=== PATIENT | male | born 2005 | race Two or more races ===

== ENCOUNTER 2025-01-04 08:00 | Outpatient (RCR) | payer MEDICAID, SELFPAY ==
--- NOTE | 2025-01-04 09:00 | BH.SGPN.GN ---
Behaviors/Verbalizations/Mental Status: [] Eye contact is good. Motor activity is appropriate. Appearance is casual. Speech is Appropriate. Mood is anxious. Affect is congruent. Thoughts are linear and logical. No evidence of psychosis. Reviewed daily check in sheet and no reports of suicidal ideations Client Response/Progress/Benefit: [] Pt declined to share during group. Attentive. Daily symptom tracker notes 3/5 for depression , 5/5 for anxiety, and 2/5 for irritability. Today was pt's first day in IOP and he choose not to share. No progress noted. Group provided support and encouragement which was beneficial. Will continue in IOP to prevent decompensation, increase healthy coping, and maintain safety. Narrative Note: []
--- NOTE | 2025-01-04 09:45 | BH.COMM ---
Communication Note Communication with Client Communication Note: Met with pt to complete paperwork, update any changes to pre-admission screening, and complete risk assessment. Moderate risk on [facility]. Consulted with Dr. Valdivia regarding current symptoms with orders to admit to IOP with dx of F33.2
--- NOTE | 2025-01-04 10:10 | BH.SGPN.GN ---
Behaviors/Verbalizations/Mental Status: []Pt alert and oriented, neatly dressed and groomed. Eye contact good. Motor activity appropriate. Speech within normal limits. Affect congruent, mood depressed. Thoughts linear, logical, no signs of hallucinations or delusions. Client Response/Progress/Benefit: [] Pt responded well to session AEB contributing to discussion, taking notes, and listening attentively to others. Group discussed the benefits of managed anger and anger as a secondary emotion. Pt participated in discussions on anger triggers and responses. Group reported outward personal signs of anger as lashing out verbally, crying, and being impulsive. Group Identified examples of anger cycles and as well the emotions that contribute to anger. Appeared to benefit from increased knowledge of the underlying emotions that impact anger and increased self-awareness of the internal and external consequences of anger. Pt will continue IOP tx to prevent decompensation, gain healthy coping skills, and improve daily functioning. Narrative Note: []
--- NOTE | 2025-01-05 21:03 | BH.PSA ---
Source of Information Presenting Problems/Circumstances Problems, Referral Source, Mental Status, Client: Pt presented to [facility] IOP program for further evaluation and treatment of worsening depression and poor functioning. Patient was referred by her mother due to passive SI, worsening depression with poor functioning/poor self-care. Pt reports history of depression going back to the age of 12 or 13 but notes he pushed it to the side and had not focused on his mental health at the time. More recently he has struggled with thoughts of not wanting to be alive, worsened depressed mood with difficulty functioning. Notes very poor sleep and erratic appetite, anhedonia, difficulty concentrating. He said he is seeking help now due to symptoms worsening after a series of stressors and his mother's concern. He lost his grandfather a year ago in January which has been very hard on him and the anniversary of his coming up has increased his depression. Psychiatric Presentation Psych Issues & Need for Admission Psychiatric Issues:: MDD (major depressive disorder), recurrent severe, without psychosis F33.2 Generalized Anxiety Disorder Past Psychiatric History MH Treatment Hx Treatment History: Sees a psychiatrist since Dawit year in high school. Stated he goes to [facility] for medication management. Never has been in counseling. First hospitalization:: Denies any inpatient psychiatric hospitalization. ECT Therapy:: No Age of first mental health symptoms: Age 11, developed symptoms of depression and struggled a lot during school due to bullying and his weight, did not start trying medication until his dawit year due to significant decompensation. Development & Family of Origin Childhood Significant Childhood Events: At one point when he was around 2 years old he was homeless and living in the car with his mom in [place] and throughout his younger years went to 7 different schools, ultimately moved up to [place] to be near mom side of the family and lived in [place] until recently. Father was never in pt's life and pt describes feeling abandoned by his father. Family Who currently lives in your home?: Moved to [place] 2 months ago and lives with grandma, mother, and 2 dogs. They lived in [place] for 7 years before then but just recently moved to have more space . Describe family composition:: -Parents: Very close with his mother and currently lives with her, father denied his existence for most of his life as he was and had multiple other children. Mother is considering taking him down to meet his dad and that side of the family but he is hesitant to do so -Siblings: Mother has 2 twin boys who are 26 and living in [place] but does not presently have a good relationship with them due to fallout during COVID when he and his mother did not go to a wedding due to concerns for getting COVID. He also reports he has 7 brothers and sisters from his father whom he does not know. Family History Family Hx of Psychiatric or AOD Problems: Has a grandma with ADHD Ethnicity Sexuality Sexual Orientation: Heterosexual Mental Status Memory Recent Memory: Fair Remote Memory: Fair Concentration Concentration: Fair Eye Contact Eye Contact: Good Speech Speech: Articulate Thought Process Thought Process: Logical Insight: Fair Judgment: Fair Behavior: Anxious Orientation Orientation: Time, Person, Place and Situation Appearance Appearance: Appropriate Mood Mood: Anxious and Depressed Affect Affect: Alert Suicide Assessment Suicidal Ideation Have you ever felt like hurting yourself?: Yes Please explain:: Self aborted attempt October 11, 2022. Pt stated he had a knife with intent to cut wrists with intent to but did not want his mom to find him so he decided to not follow through with attempt. Pt more recently reports passive thoughts of , denying any active suicidal ideation, intention or plan. Suicidal Intentional Rating Scale (SIRS): Suicidal thoughts (past) Physician Notification Violent Behavior/Abuse History Homicidal Ideation Do you have any homicidal thoughts? If so, explain:: No Abuse Have you ever been abused?: No Life Events Are there any other significant life events?: (maternal grandfather January 2024.) and Hardships (Going to 7 different schools due to moving. Biological father never involved in client's life. Was unhoused when pt was 2 years old with his mother.) Safety Do you ever feel threatened in your home? If yes, describe:: No Adult Social History Age 17 to Present Describe your current support system:: Identifies his mother to be his biggest form of support. 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 Had previously worked at [employer] and liked that better however had to quit to work at the [employer]. He does like some aspects but does miss working at [employer] and also notes he received better compensation at that time Service Service Have you ever been in the ?: No Legal History Records Have you had any past legal charges?: No Do you have any current legal charges?: No Have you ever been incarcerated? If yes, describe:: No Court Orders Have you had any past court orders for psychiatric treatment?: No Do you have a present court order for psychiatric treatment?: No Problem Checklist Current Problem Areas Problem List: Nutritional/Eating pattern changes (erratic appetite), Depressed mood/sad, Bereavement, Anxiety, Inattention, Substance use, Sleep problems and Additional psychosocial stressors (interpersonal conflict with his maternal grandmother. Potentially having to meet his biological father's family in [place] b/c his mother wants him to.) Home Support Worker's Assessment Client's Needs What are the client's feelings about the program?: Client noted feeling nervous about being in a group therapy program, but stated feeling hopeful he can learn things that will help. What are the client's goals?: Client would like to learn healthy coping skills to manage his anxiety and depression more effectively. Stated I want to get back to me. Diagnoses Diagnoses Diagnosis #1:: F33.2 MDD (major depressive disorder), recurrent severe, without psychosis: Diagnosis #2:: BISHNU Interpretive Summary Interpretive Summary Interpretive Summary: Fidencio is a 19y/o male who presented to [facility] IOP program for further evaluation and treatment of worsening depression and poor functioning. He reports today feeling anxious, nervous, and frustrated. Patient was referred by her mother due to passive SI, worsening depression with poor functioning/poor self-care. Fidencio reports history of depression going back to the age of 12 or 13 but notes he pushed it to the side and had not focused on his mental health at the time. Did have a significant decompensation in his dawit year of high school requiring him to stay at home to finish out the year and reports he had been unable to make it to school or complete his work due to his level of depression. 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 More recently he has struggled with thoughts of not wanting to be alive, worsened depressed mood with difficulty functioning. Notes very poor sleep and erratic appetite, anhedonia, difficulty concentrating. He said he is seeking help now due to symptoms worsening after a series of stressors and his mother's concern. He lost his grandfather a year ago in January which has been very hard on him and the anniversary of his coming up has increased his depression, additionally he has found out more about his biological father and mother's considering taking him down to meet the that side of the family which has been increasingly stressful for him because while he hopes it would go well he thinks that it will not and that this will make everything worse. Also currently living with mom and a grandmother who he does not always get along with and mom often fights with. His mother also has had health problems over the past couple of years and has been in and out of the hospital but is also on insulin now due to diabetes and is trying to navigate this which has been difficult for both of them as he is very close with his mother. Given her health complaints he is concerned that she could and what would happen after she does because she is the reason why he still around. Patient notes the depression but also social anxiety and said when he was younger he liked being around people however now especially after the COVID pandemic he is very anxious to be around others and finds he worries about many things throughout the day. Recently started having panic attacks and had 1 at work recently that was about a minute where he noticed he was crying, shaking, and his heart was racing. At times these are triggered but other times they come out of nowhere. When asked about any manic history he reports that he flip-flops moment to moment of the longest high that he had was 1 month and notes being distractible during that time but was not able to expand on that much more during her interview. Does note that he also has lows with the longest 1 being 2 months his dawit year and he did not eat and lost 14 pounds and had a significantly hard time functioning as above. Denies current AH/VH. Reports once he did have auditory hallucinations after accidentally overdosing on vitamin D because he thought he was taking the daily dose but he was really taking the monthly dose every day but never happened before nor after. Still reporting the thoughts of not wanting to be alive but no active plan. Denies any HI. Does report sometimes he will have nightmares about real-life scenarios and he will not want a fall back asleep to avoid reliving those moments but other times will have nightmares about random things. Does smoke marijuana heavily up to 20 hours a day but denies smoking today and said he is not going to smoke before coming here so we can maximally engage and he does know this is a problem and ultimately has the goal to cut back. Treatment Plan Recommendations Recommendations Guidelines Recommendations:: The patient will begin IOP in Behavioral Health at [facility]. The program's structure, support, education, and therapy aim to prevent deterioration of symptoms and avoid the need for PHP or inpatient hospitalization.
--- NOTE | 2025-01-06 10:15 | BH.SGPN.GN ---
Behaviors/Verbalizations/Mental Status: []Pt alert and oriented, neatly dressed and groomed. Eye contact good. Motor activity appropriate. Speech within normal limits. Affect constricted, mood anxious and depressed. Thoughts linear, logical, no signs of hallucinations or delusions. Client Response/Progress/Benefit: [] Pt responded well to session, contributing to discussion and engaged during the activity. Group identified the benefits of change which included: increased confidence, progressing towards goals, and improving mental and physical health. Worked with the group to identify barriers to change, which included: uncomfortable emotions such as anxiety, lack of energy, lack of support, and fear of the unknown. Pt participated along with group in activity where they identified and discussed the emotions related to change. Benefited from increased awareness and understanding of emotions, benefits, and barriers related to change. Will continue IOP tx to prevent decompensation, improve daily functioning, and gain healthy coping skills. Narrative Note: []
--- NOTE | 2025-01-06 11:10 | BH.SGPN.GN ---
Behaviors/Verbalizations/Mental Status: []Client alert and oriented, casually dressed and groomed. Eye contact fair. Motor activity appropriate. Speech within normal limits. Affect congruent, mood anxious. Thoughts linear, logical, no signs of hallucinations or delusions Client Response/Progress/Benefit: [] Pt responded well to session, attentive. Engaged in psychoeducation and discussion about finishing the stages of change. Did well to process activity and work with group to relate the strategies used to overcome barriers in the activity to managing change in own life. Pt identified a change they would like to make is to change his addiction to marijuana problem. Pt identified currently being in preparation stage for this change. Pt stated goal is to continue to slowly decrease his use each week. Appeared to benefit from identifying a small goal to work towards. Pt will continue IOP tx to prevent decompensation, challenge anxious thoughts, and improve healthy coping skills.
--- NOTE | 2025-01-06 21:02 | BH.MDN_ITS ---
Multi-Disciplinary Note Note 45-min Individual: Time Started:: 09:00 Date: 01/06/25 Purpose of session/treatment goals addressed:: Purpose of session was to address goals 1 and 2 from MTP. Eye Contact:: Good Motor Activity:: Appropriate Appearance:: Casual Speech:: Appropriate Mood:: Anxious and Depressed Affect:: Congruent Thoughts:: Linear, Logical and No evidence of hallucinations/delusions noted Staff Interventions:: CBT techniques, rapport building, strengths perspective, treatment planning and goal setting Client Response:: Client reported he is seeking [facility] level of care after his mom recommended client get help due to passive SI, worsening depression with poor functioning/poor self-care. Fidencio reports history of depression going back to the age of 12 or 13 but notes he pushed it to the side and had not focused on his mental health at the time. Pt shared recently he has struggled with thoughts of not wanting to be alive, worsened depressed mood with difficulty functioning. Notes very poor sleep and erratic appetite, anhedonia, difficulty concentrating. Client reported further triggered by his mom wanting to take him to [place] to meet some of his father's family even thought client hasn't had a relationship with his father. Client he has a lot of fear of abandonment due to his father not being in his life. Recently started having panic attacks and had 1 at work recently that was about a minute where he noticed he was crying, shaking, and his heart was racing. At times these are triggered but other times they come out of nowhere. Client shared about having a rough time in high school experiencing racism from his friends. Client noted did online school in 9th and 10th grade. Client shared Dawit year he had to leave school early due to getting into fights and struggling with significant depressed symptoms. Client shared while in [facility] he would like to work on decrease how frequent he overthinks everything. Client noted additionally would like to work on decreasing anxiety because his anxiety often leads him to avoid things. client shared overthinking and anxiety contributes to him people pleasing and often putting his own needs below others. Risks/Concerns:: Client denies active suicidal ideation, plan, or intention to date. Client has reported passive thoughts of like wouldn't mind if didn't wake up. He reports being able to maintain safety. Progress Toward Goals/Plan:: No progress observed due to it being client's first day in IOP. Client seeking treatment due to worsening depression, anxiety, and decrease in daily functioning. Client has struggled off and on with his mental health since high school but reported he never has been open to seeking counseling. Client shared he is open to treatment now because his mental health has been continuing to decompensate. Client to continue IOP to improve daily functioning, improve healthy coping skills, and prevent decompensation. Time Stopped:: 09:45
--- NOTE | 2025-01-06 21:03 | BH.MTP_ITS ---
Master Treatment Plan Patient Information Program Physician:: Dr. Valdivia Primary Therapist:: Corry Villanueva, [facility] Psychiatric Diagnoses Psychiatric Diagnoses:: MDD (major depressive disorder), recurrent severe, without psychosis Generalized Anxiety Disorder Diagnosis Code(s):: F33.2 Estimated LOS Estimated LOS (in weeks):: 8 Problem/Goal #1 Problem/Goal #1 Stated Goal:: Client will decrease depressive symptoms, isolation, and low motivation due to Major Depressive Disorder through Intensive Outpatient Program. Description of Barriers: Potential barriers include: cannabis use, cognitive distortions, low motivation, family conflict, and people pleasing behavior. Functional Impact: Pt presented to [facility] IOP program for further evaluation and treatment of worsening depression and poor functioning. Patient was referred by her mother due to passive SI, worsening depression with poor functioning/poor self-care. Pt reports history of depression going back to the age of 12 or 13 but notes he pushed it to the side and had not focused on his mental health at the time. More recently he has struggled with thoughts of not wanting to be alive, worsened depressed mood with difficulty functioning. Notes very poor sleep and erratic appetite, anhedonia, difficulty concentrating. He said he is seeking help now due to symptoms worsening after a series of stressors and his mother's concern. He lost his grandfather a year ago in January which has been very hard on him and the anniversary of his coming up has increased his depression. Objectives Objective #1: Stated Objective: Client will learn and utilize 2-3 healthy coping strategies to manage depressive symptoms. Interventions: Therapist and group therapy will utilize CBT techniques to assist client with understanding the connection between thoughts, feelings and behaviors. Education will be provided on behavioral activation. Therapist will assist client in learning internal coping strategies to manage depressive symptoms, along with helping client identify triggers. Discharge Criteria: Client will have achieved this goal when can verbalize and has practiced at least 2 healthy coping strategies that successfully manage depressive symptoms. Target Date: 03/03/25 Review Date: 02/03/25 Objective #2: Stated Objective: Identify at least 2-3 negative self-talk messages used to reinforce feelings of worthlessness and replace thoughts with positive messages. Interventions: Therapist will help client identify distorted, negative beliefs about self and replace with more realistic, affirmative messages. Discharge Criteria: Client will have achieved this goal when can verbalize at least 2 negative self-talk messages and effectively replace those thoughts with affirmative messages.? Target Date: 03/03/25 Review Date: 02/03/25 Problem/Goal #2 Problem/Goal #2 Stated Goal:: Client will reduce overall frequency, intensity, and duration of the anxiety so that daily functioning is not impaired. Description of Barriers: Potential barriers include: cannabis use, cognitive distortions, low motivation, family conflict, and people pleasing behavior. Functional Impact: Pt presented to [facility] IOP program for further evaluation and treatment of worsening depression and poor functioning. Patient was referred by her mother due to passive SI, worsening depression with poor functioning/poor self-care. Pt reports history of depression going back to the age of 12 or 13 but notes he pushed it to the side and had not focused on his mental health at the time. More recently he has struggled with thoughts of not wanting to be alive, worsened depressed mood with difficulty functioning. Notes very poor sleep and erratic appetite, anhedonia, difficulty concentrating. He said he is seeking help now due to symptoms worsening after a series of stressors and his mother's concern. He lost his grandfather a year ago in January which has been very hard on him and the anniversary of his coming up has increased his depression. Goal Relevant Strengths/Supports: Intelligent, resilient, and motivated to get better. Objectives Objective #1: Stated Objective: Client will learn and implement 2-3 calming skills to reduce overall anxiety and manage anxiety symptoms. Interventions: Therapist and group sessions will help client identify physiological warning signs of anxiety, increase awareness of thoughts that increase anxiety, and identify behaviors that reinforce anxious symptoms. Group and individual counseling will teach client calming skills to help manage anxious symptoms. Discharge Criteria: Client will have achieved this goal when can verbalize at least 2 calming skills and reports skills successfully help reduce anxious symptoms. Target Date: 03/03/25 Review Date: 02/03/25 Objective #2: Stated Objective: Client will identify 2-3 anxiety triggers and 2 coping skills to use when feeling anxious. Interventions: Therapist will encourage client to use self-awareness strategies and assist client in developing coping strategies to manage ruminating thoughts. Discharge Criteria: Client will have met this goal when can identify at least 2 triggers and 2 ways to cope with anxieties. Target Date: 03/03/25 Review Date: 02/03/25
--- NOTE | 2025-01-07 09:00 | BH.NA_ITS ---
Physical Data Vital Signs Pulse Rate: 61 Blood Pressure: 132/62 Height/Weight Height: 1.8 m Weight:: 76.204 kg Weight in Pounds: 168.0 lbs Current Medication Compliance Medication Compliance Do you take your medication as prescribed?: Yes Functional Assessment Sleep Pattern Describe any problems with sleeping: Client states he recently has been sleeping 4-5 hours per day. Sensory/Communication Assess Communication Problems Do you have difficulty understanding what people are saying?: No Medical Problems/History Neurological Conditions Neurological: Other (See comments) (epilepsy- diagnosed at the age of 8, last seizure in 2017) Surgical History Surgical History Have you had any surgeries? If so, list type and date:: No Substance Abuse Substance Abuse Please describe substance abuse in the last 30 days:: Client denies current alcohol use. Client reports tobacco use in the past but denies current. Client has been using marijuana daily for about 1 year. Client occasionally has soda with caffeine. Mental Status Summary Mental Status Significant Findings/Observations on Appearance and Mood:: Client is alert and oriented x 4. Client is casually groomed with good hygiene. Client is cooperative with assessment. Client makes good eye contact. Client has appropriate affect. Client makes logical associations and has normal processing. Client denies delusions/hallucinations. Client denies current SI, but states a few weeks ago he did have passive SI. Suicide Assessment Suicidal Ideation Are you currently or have you been suicidal in the past?: Yes Suicidal Intentional Rating Scale (SIRS): Suicidal thoughts (past) (denies current SI, states about 3 weeks ago he did have some SI with no plan or intent) Physician Notification Past Psychiatric History MH Treatment Hx Past Psychiatric Medications:: Lexapro, Prozac, Buspar Age of first mental health symptoms: Client states he was first depressed around age 12 due to being bullied but states he did not start medication until he was 16. Client states he has been told he may have bipolar disorder. Describe (age, circumstance, etc) any past hospitalizations: None. Current providers for mental health treatment (counselor, psychiatrist, rehabilitation caseworker, etc.): Maira Soni at [facility] for psychiatry Fall Risk Assessment Age Age: Less than 60 Mental Status Mental Status: Willing & able to ask for assistance when needed Physical Status Physical Status: No problems Impairments Impairments: None Elimination Elimination: Continent AND independent Gait or Balance Gait or Balance: Walks independently Hx of Falls History of falls in the past 6 months: No known history Medications/Substances Psychotropics:: Antipsychotics Medications/substances used within the past 24 hours or ordered to administer: 1-2 of the medications/substances listed above Total Score Total Points:: 1 RN Summary of Impressions Impressions Recommendations Impressions: Psychiatric Issues: major depressive disorder Level of Care How do the client's current symptoms and functional deficits support need for this level of care?: Client was referred to IOP by family due to depression and passive SI. Client states My mom wanted me to focus on myself, because I have had a lot of things affect my mental health. Client's stressors include a grandparent passing away and finding out who his biological dad is. Client reports crying spells at times, decrease in ability to do ADL's due to mental health, ruminations and occasional panic attacks. Client denies current SI. IOP will promote gains and prevent further decompensation while providing social support and skills training. Nutritional Screen Height/Weight Height: 1.8 m Weight:: 76.204 kg Weight in Pounds: 168.0 lbs Nutrition Screening Normal Weight: 76.204 kg Normal/Usual Weight in Pounds: 168.0 lbs Have you lost weight without trying: No Have you been eating poorly because of a decreased appetite: No (states appetite slightly decreased but denies change in weight) Recently been on tube feeds, TPN, or have any nutritional access device in place: No Have any large open wounds or wounds that are not healing: No Calculated Weight Change: 0 Change in weight Score: 0 MST Screening Tool Score: 0
--- NOTE | 2025-01-07 09:00 | BH.SGPN.GN ---
Behaviors/Verbalizations/Mental Status: [] Pt alert and oriented, Casually dressed and groomed. Eye contact fair. Motor activity appropriate. Speech within normal limits. Affect congruent, mood anxious. Thoughts linear, logical, no signs of hallucinations or delusions. Reviewed pt?s symptom tracker today, denies suicidal ideation, plan, and intent.01/07/25 Client Response/Progress/Benefit: []Pt was an active participant in group discussions. Attentive. Per patients daily symptom tracker, pt indicates a 4/5 for depression and a 4/5 for anxiety, with 5 being severe. Pt's mental health positive was being more consistent with keeping himself on a schedule. His other mental health positive was going out with friends to play basketball at the [facility]. Pt stated that his stressor was thinking about his grandfather who had a year ago around this time. Pt stated that overall he was feeling anxious and irritated. Pt was supportive and attentive to others in the group. Pt seemed to benefit from support from peers. Will continue IOP tx to promote healthy coping mechanisms, decrease negative thinking patterns, and prevent decompensation.
--- NOTE | 2025-01-07 09:28 | BH.PSY.EVA_ITS ---
Intake Vital Signs 01/07/25 10:14 Height 1.8 m Weight: 76.204 kg BP 132/62 H Pulse 61 Intake Visit Reasons: [facility] care IOP depression Allergies No Known Allergies Allergy (Verified 01/07/25 09:06) Medications ?Medication ?Instructions ?Recorded ?Confirmed ?Type cholecalciferol (vitamin D3) 25 25 mcg PO DAILY 01/07/25 History mcg (1,000 unit) tablet divalproex 500 mg tablet,extended 1,000 mg PO DAILY 01/07/25 History release 24 hr lumateperone 42 mg capsule 42 mg PO DAILY 01/07/25 History (Caplyta) HPI () History of Present Illness History provided by: patient Chief complaint: [facility] IOP MDD HPI: Fidencio is a 19y/o male who presented to [facility] IOP program for further evaluation and treatment of worsening depression and poor functioning. He reports today feeling anxious, nervous, and frustrated. Patient was referred by her mother due to passive SI, worsening depression with poor functioning/poor self-care. Fidencio reports history of depression going back to the age of 12 or 13 but notes he pushed it to the side and had not focused on his mental health at the time. Did have a significant decompensation in his araseli year of high school requiring him to stay at home to finish out the year and reports he had been unable to make it to school or complete his work due to his level of depression. 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 More recently he has struggled with thoughts of not wanting to be alive, worsened depressed mood with difficulty functioning. Notes very poor sleep and erratic appetite, anhedonia, difficulty concentrating. He said he is seeking help now due to symptoms worsening after a series of stressors and his mother's concern. He lost his grandfather a year ago in January which has been very hard on him and the anniversary of his coming up has increased his depression, additionally he has found out more about his biological father and mother's considering taking him down to meet the that side of the family which has been increasingly stressful for him because while he hopes it would go well he thinks that it will not and that this will make everything worse. Also currently living with mom and a grandmother who he does not always get along with and mom often fights with. His mother also has had health problems over the past couple of years and has been in and out of the hospital but is also on insulin now due to diabetes and is trying to navigate this which has been difficult for both of them as he is very close with his mother. Given her health complaints he is concerned that she could and what would happen after she does because she is the reason why he still around. Currently he notes being on Caplyta and going up to the 42 mg a couple of weeks ago. Has found this medication somewhat helpful for some of the symptoms but is still struggling which is why presented to this program. Patient notes the depression but also social anxiety and said when he was younger he liked being around people however now especially after the COVID pandemic he is very anxious to be around others and finds he worries about many things throughout the day. Recently started having panic attacks and had 1 at work recently that was about a minute where he noticed he was crying, shaking, and his heart was racing. At times these are triggered but other times they come out of nowhere. When asked about any manic history he reports that he flip-flops moment to moment of the longest high that he had was 1 month and notes being distractible during that time but was not able to expand on that much more during her interview. Does note that he also has lows with the longest 1 being 2 months his araseli year and he did not eat and lost 14 pounds and had a significantly hard time functioning as above. Denies current AH/VH. Reports once he did have auditory hallucinations after accidentally overdosing on vitamin D because he thought he was taking the daily dose but he was really taking the monthly dose every day but never happened before nor after. Still reporting the thoughts of not want ing to be alive but no active plan. Denies any HI. Does report sometimes he will have nightmares about real-life scenarios and he will not want a fall back asleep to avoid reliving those moments but other times will have nightmares about random things. Does smoke marijuana heavily up to 20 hours a day but denies smoking today and said he is not going to smoke before coming here so we can maximally engage and he does know this is a problem and ultimately has the goal to cut back. Current psychiatric medications: Depakote 500 mg BID, Caplyta 42 mg daily, just recently increased Past psychiatric treatment Hx: -First age experiencing symptoms: Age 11, developed symptoms of depression and struggled a lot during school due to bullying and his weight, did not start turning medication until his araseli year due to significant decompensation -Previous diagnoses: He notes previously getting the diagnosis of bipolar disorder however unclear due to difficulty eliciting specific symptoms -Psychiatrist: Latha once a month over the phone and once a year in person at [facility] -Psychiatric hospitalizations: Denies -Suicide attempts: Self aborted attempt in 2022 with cutting -Medication trials: Prozac and lexapro. Was on keppra for seizure disorder from 8 until 15 then went to depakote Medical Hx: -Medical problems: History of epilepsy from the age of 8, currently on Depakote. Reports that has been talk of him going off of the Depakote altogether as he has been seizure-free for a long time but currently does not want to do that given everything going on mentally right now. Also notes lower back pain and is undergone physical therapy multiple times, currently doing yoga -Medications: See home med list Substance use Hx: -Drugs: Daily heavy marijuana use -Tobacco use:Uses pouches and is trying to cut back Family Hx: -Mental illness: Has a grandma with ADHD -General medical conditions: Mom with diabetes, CAD, subclavian steal syndrome, grandfather with pacemaker high 20 hrs a day aniety worse after the pandemic Went to 7 different schools grandpas side of family, never met dad, dads family in [place], step brothers and step sisters, maybe goes down to meet dads family epilepsy around 8 one of 8 two brothers, 6 years older (theyre 26) in [place], not talking with them right now Psychosocial: -Born/raised: Born and raised early on in [place] -Childhood: At one point when he was around 2 years old he was homeless and living in the car with his mom in [place] and throughout his younger years went to 7 different schools, ultimately moved up to [place] to be near mom side of the family and lived in [place] until recently -Parents: Very close with his mother and currently lives with her, father denied his existence for most of his life as he was and had multiple other children. Mother is considering taking him down to meet his dad and that side of the family but he is hesitant to do so -Siblings: Mother has 2 twin boys who are 26 and living in [place] but does not presently have a good relationship with them due to fallout during COVID when he and his mother did not go to a wedding due to concerns for getting COVID. He also reports he has 7 brothers and sisters from his father whom he does not know -Current living situation and location: Moved to [place] 2 months ago and lives with grandma, mother, and 2 dogs. 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 Had previously worked at [employer] and liked that better however had to quit to work at the Personally. He does like some aspects but does miss working at [employer] and also notes he received better compensation at that time Medical ROS: General: Denies fever HENT: Denies headache EYES: Denies acute changes in vision Resp: denies shortness of breath Cardiac: Denies chest pain GI: denies changes in bowel, denies nausea/vomiting : Denies changes in urination MSK: Denies weakness, lower back pain moreso recently, sometimes pain in ankles or legs Neuro: Denies any numbness/tingling Heme: Denies any bleeding or bruising Skin: Denies rashes Psychiatric: As above Exam () Mental Status Exam- Psych () Appearance casually dressed and adequately groomed Attitude cooperative, engaged and pleasant Activity/Motor Behavior fidgeting Speech regular rate and regular volume Mood other (Frequently tearful) Affect full range Thought Process linear and logical Thought Content no delusions Suicidal Ideation passive Homicidal Ideation none Attention intact Concentration intact Sensorium/Orientation awake and alert Memory/Cognition intact Insight fair Judgement fair Assessment & Plan () Assessment & Plan (1) MDD (major depressive disorder), recurrent severe, without psychosis: Plan: Patient presents with depressed mood, poor sleep, erratic appetite, anhedonia, difficulty with concentration, crying spells, thoughts of not wanting to be alive without active plan. He is on Caplyta and recently increased to 42 mg, is finding this somewhat helpful. After discussing with patient it does seem that a lot of his decompensation is psychosocial related and would best be served with therapy and given recent increase in Caplyta we will continue current regimen. Will monitor for need for medication adjustment or augmentation moving forward pending progress. Cannot entirely rule out bipolar disorder as he reports he was diagnosed with this previously but also was unable to elicit full diagnostic criteria for this. Plan Detail Assessment: The patient will begin IOP in Behavioral Health at [facility]. The program's structure, support, education, and therapy aim to prevent deterioration of symptoms and avoid the need for PHP or inpatient hospitalization. I have a reasonable expectation that the patient will make practical improvements in their presenting symptoms and will be discharged to a lower level of care. Charges/Coding Behavior [facility] Behavior [facility] Psychiatric Evaluation: [id number] Psych Diag Exam w/ Medical Services
[2025-01-07 10:14] VITALS: BP 132/62; PULSE 61
--- NOTE | 2025-01-07 10:53 | BH.PSY.EVA_ITS ---
Initial Treatment Plan Patient Information Visit Information: ADMISSION DATE: EXPECTED LOS: 4-6 weeks
--- NOTE | 2025-01-07 10:53 | BH.DR.ITP ---
Initial Treatment Plan Patient Information Visit Information: ADMISSION DATE: EXPECTED LOS: 6-8 weeks Diagnoses:: MDD Problems/Symptoms Problem #1:: MDD Symptom:: depressed mood, poor sleep, erratic appetite, anhedonia, difficulty with concentration, crying spells, thoughts of not wanting to be alive
--- NOTE | 2025-01-07 11:15 | BH.SGPN.GN ---
Behaviors/Verbalizations/Mental Status: []Pt alert and oriented, appropriate grooming/appearance. Eye contact good. Motor activity appropriate. Speech within normal limits. Affect congruent, mood anxious. Thoughts linear, logical, no signs of hallucinations or delusions. Client Response/Progress/Benefit: []Pt was an active participant in group discussions. Attentive during psychoeducation. In small group pt along with peers developed an active plan for their crisis warning signs. Pt identified three crisis warning signs as well as an action plan for each. One crisis warning sign was poor self-care. Pt identified strategies to help with this such as: opposite action, make a routine, have mom help, and listen to music while doing it. Benefited from increased awareness of crisis warning signs and by developing crisis intervention strategies. Will continue in IOP to improve distress tolerance, challenge distortions, and prevent decompensation. Narrative Note: []
--- NOTE | 2025-01-10 09:00 | BH.SGPN.GN ---
Behaviors/Verbalizations/Mental Status: [] Eye contact is good. Motor activity is appropriate. Appearance is casual. Speech is Appropriate. Mood is dysthymic. Affect is congruent. Thoughts are linear and logical. No evidence of psychosis. Reviewed daily check in sheet and no reports of suicidal ideations Client Response/Progress/Benefit: [] Pt participated when prompted. Attentive. Reported being social this weekend. He also ?picked up an extra shift?. He elaborated on how this was a mental health benefit. Shared that the anniversary of his grandfather?s is near which has been very challenging for him and his family. Progress noted. Benefited from group support, encouragement, and feedback. Will continue in IOP to maintain safety, prevent decompensation, and increase healthy coping. Narrative Note: []
--- NOTE | 2025-01-10 11:10 | BH.SGPN.GN ---
Behaviors/Verbalizations/Mental Status: [] Eye contact is good. Motor activity is appropriate. Appearance is casual. Speech is Appropriate. Mood is anxious. Affect is congruent. Thoughts are linear and logical. No evidence of psychosis. Client Response/Progress/Benefit: [] Pt was an engaged participant in group discussion and activity. Worked with group to identify strategies to help overcome barriers and obstacles to desired reality. Group developed strategies for the common barriers. Identified personal barriers to desired reality which included Self-doubt, poor communication, all or nothing thinking, and avoidance. Was able to identify a skill to implement immediately to address avoidance. Pt seemed to benefit from increased repertoire of healthy coping skills/strategies to overcome common barriers to moving forward. Will continue in IOP to prevent decompensation, stabilize emotions, increase healthy coping, and improve functioning. Narrative Note: []
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
--- NOTE | 2025-01-13 09:00 | BH.SGPN.GN ---
Behaviors/Verbalizations/Mental Status: [] Pt alert and oriented, Casually dressed and groomed. Eye contact good. Motor activity appropriate. Speech within normal limits. Affect congruent, mood anxious. Thoughts linear, logical, no signs of hallucinations or delusions. Reviewed pt?s symptom tracker today, denies suicidal ideation, plan, and intent.01/13/25 Client Response/Progress/Benefit: []Pt was an active participant in group discussions. Attentive. Per patients daily symptom tracker, pt indicates a 3/5 for depression and a 3/5 for anxiety, with 5 being severe. Pt shared his first mental health win as being more consistent with coming to group, as well as in other areas of his life such as socializing. His second mental health win was cooking dinner for himself three times in the past week. The client stated that he enjoys cooking and has been meal prepping to make meals easier. Pt's stressor was having the first family thanksgiving since his grandfather last year. Pt stated that he was unsure how everyone will feel, and worries that everyone will be upset. Pt stated that despite this, he feels that it will be good for his family to be together. Pt was supportive and attentive to others in the group. Pt seemed to benefit from support from peers. Will continue IOP tx to promote healthy coping mechanisms, decrease negative thinking patterns, and prevent decompensation.
--- NOTE | 2025-01-13 10:10 | BH.SGPN.GN ---
Behaviors/Verbalizations/Mental Status: [] Eye contact is good. Motor activity is appropriate. Appearance is casual. Speech is Appropriate. Mood is euthymic Affect is congruent. Thoughts are linear and logical. No evidence of psychosis. Client Response/Progress/Benefit: [] Pt engaged in session AEB listening attentively to others and providing input throughout. Pt engaged in activity, able to connect how it can be uncomfortable and difficult to practice acceptance when situations are out of one?s own control. Identified what they are struggling to accept in personal life. Worked with peer group to define acceptance and identify the benefits that acceptance can bring. Benefits included; reduced anger, self forgiveness, moving forward, and improved mental health. Seemed to benefit from increased awareness of the meaning as well as the importance of acceptance. Will continue in IOP to improve emotion regulation, increase selfcare, and prevent decompensation. Narrative Note: []
--- NOTE | 2025-01-13 11:15 | BH.SGPN.GN ---
Behaviors/Verbalizations/Mental Status: []Pt alert and oriented, casually dressed and groomed. Eye contact good. Motor activity appropriate. Speech within normal limits. Affect congruent, mood euthymic. Thoughts linear, logical, no signs of hallucinations or delusions. Client Response/Progress/Benefit: [] Pt responded well to session AEB taking notes and contributing to discussion throughout. Pt engaged as group continued discussion on acceptance and the mental health benefits of practicing acceptance. Pt and peers identified what makes acceptance challenging and pt completed a self-reflection exercise on what is hard to accept in pt's life.. Group identified strategies to increase acceptance. Pt noted wanting to work on ?understand what in vs whats not in my control? as a strategy for improving acceptance. Pt appeared to benefit from gaining insight and learning strategies to increase acceptance. Pt will continue IOP tx to promote mood stability, reinforce healthy coping skills, and increase overall functioning. Narrative Note: []
--- NOTE | 2025-01-14 09:00 | BH.SGPN.GN ---
Behaviors/Verbalizations/Mental Status: [] Pt alert and oriented, Casually dressed and groomed. Eye contact good. Motor activity appropriate. Speech within normal limits. Affect congruent, mood calm. Thoughts linear, logical, no signs of hallucinations or delusions. Reviewed pt?s symptom tracker today, denies suicidal ideation, plan, and intent.01/14/25 Client Response/Progress/Benefit: []Pt was an active participant in group discussions. Attentive. Per patients daily symptom tracker, pt indicates a 3/5 for depression and a 3/5 for anxiety, with 5 being severe. Pt shared his mental health positive as making it to group today despite being tired and wanting to sleep in. Pt's other mental health positive was getting back on to a regular exercise routine, and thinking about rejoining a gym. Pt stated that he enjoys working out, as it helps his mental and physical health. Pt's stressor was finding a place for a new antique that his grandmother wants him to put in their antique store. Pt stated that he gets stressed when things are messy, and the new antique does not fit in the store, making it cluttered. Pt was supportive and attentive to others in the group. Pt seemed to benefit from support from peers. Will continue IOP tx to promote healthy coping mechanisms, decrease negative thinking patterns, and prevent decompensation.
--- NOTE | 2025-01-14 10:10 | BH.SGPN.GN ---
Behaviors/Verbalizations/Mental Status: [] Pt alert and oriented, casually dressed and groomed. Eye contact fair. Motor activity appropriate. Speech within normal limits. Affect full , mood euthymic, Thoughts linear, logical, no signs of hallucinations or delusions. Client Response/Progress/Benefit: [] Pt participated in group discussion. Group worked together to identify benefits of healthy relationships which included improves mental health, encouragement, motivation, accountability, validation, connection, someone to share experiences with, and support during challenges. Group identified factors that lead to unhealthy relationships which included trauma, lack of communication, and substance use. Benefited from increased insight and awareness of benefits of healthy relationships and factors that contribute to unhealthy relationships. Will continue in IOP to increase consistent use of healthy coping skills, challenge negative thoughts, and prevent decompensation. Narrative Note: []
--- NOTE | 2025-01-14 11:10 | BH.SGPN.GN ---
Behaviors/Verbalizations/Mental Status: [] Pt alert and oriented, casually dressed and groomed. Eye contact fair. Motor activity appropriate. Speech within normal limits. Affect full , mood euthymic, Thoughts linear, logical, no signs of hallucinations or delusions. Client Response/Progress/Benefit: [] Client responded well to session, engaged and taking notes throughout. Worked with group to connect components of the experiential activity with characteristics of healthy and unhealthy relationships. Attentive during psychoeducation about characteristics of healthy, unhealthy, and abusive relationships. Group member picked unhealthy and healthy attributes of an important relationship in their lives. Client reported they would like to continue to improve repect in their chosen relationship. Appeared to benefit from identifying current healthy relationship attributes and an area client wants to work on to build healthier relationships. Client to continue IOP to increase healthy coping skills, stabilize mood, and prevent decompensation. Narrative Note: []
--- NOTE | 2025-01-17 09:00 | BH.SGPN.GN ---
Behaviors/Verbalizations/Mental Status: [] Client alert and oriented, casually dressed and groomed. Eye contact good. Motor activity appropriate. Speech within normal limits. Affect constricted, mood depressed. Thoughts linear, logical, no signs of hallucinations or delusions. Reviewed client?s symptom tracker, no risk for suicidal ideation, plan, or intent as of 01/17/25 Client Response/Progress/Benefit: [] Client responded well to group by actively participating throughout group. Reported that their emotion today was down.Client shared that his stress and mind is on week with it being busy and lot to do. Client shared reluctance to being around others during the holiday, but indicated they plan to make an appearance. Client shared that he has been trying to make an effort to spend more time with mom and dogs and succeeding in that. Client seemed to benefit from feedback and validation from group members.. They will continue IOP tx to increase coping skills, prevent decompensation, and increase overall functioning. Narrative Note: []
--- NOTE | 2025-01-17 10:10 | BH.SGPN.GN ---
Behaviors/Verbalizations/Mental Status: [] Pt alert and oriented, casual appearance, eye contact good. Motor activity appropriate. Speech within normal limits. Affect congruent. Mood euthymic. Thoughts linear, logical, no signs of hallucinations or delusions. Client Response/Progress/Benefit: [] Pt was an active participant in group discussions on defining conflict (internal/external) and possible benefits to conflict. Attentive during psychoeducation on conflict styles (avoidant, accommodating, competing, cooperative) and engaged during group discussion in which the group identified when it is beneficial to use conflict styles and pitfalls of each conflict style. Pt noted they connect most with collaborating and completing styles of conflict. Pt was an able to connect the impact current style of conflict has on functioning. Benefited from increased awareness of the impact of conflict styles on mental health. Will continue in IOP to improve distress tolerance, improve confidence, and prevent decompensation.
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
--- NOTE | 2025-01-18 09:05 | BH.SGPN.GN ---
Behaviors/Verbalizations/Mental Status: [] Eye contact is good. Motor activity is appropriate. Appearance is casual. Speech is Appropriate. Mood is euthymic. Affect is full. Thoughts are linear and logical. No evidence of psychosis. Reviewed daily check in sheet and no reports of suicidal ideations. Client Response/Progress/Benefit: [] Pt participated when prompted. Attentive. Was able to identify mental health wins. Also reports decreased stressed and anxiety since starting IOP. He discussed situational stressors upcoming this week. Benefited from grou support, encouragement, and feedback. Will continue in IOP to prevent decompensation, stabilize mood, and improve functioning. Narrative Note: []
--- NOTE | 2025-01-18 10:15 | BH.SGPN.GN ---
Behaviors/Verbalizations/Mental Status: []Pt alert and oriented, neatly dressed and groomed. Eye contact good. Motor activity appropriate. Speech within normal limits. Affect constricted, mood depressed. Thoughts linear, logical, no signs of hallucinations or delusions. Client Response/Progress/Benefit: [] Pt engaged in session AEB client listening attentively to peers and providing input. Attentive and contributed to discussion as group worked on defining self-forgiveness and identifying mental health benefit. Identified benefits as: reduce guilt/shame, increase self-confidence, decrease negative self-talk, healthier relationships, ect. ?Worked in small groups to identify factors that can make self-forgiveness difficult. Pt identified a personal barrier to self-forgiveness including comparing self to others and ?it feels easier not to forgive sometimes.? Benefited from increased education on self-forgiveness, benefits, and what effects it. Pt will continue IOP tx to prevent decompensation, improve daily functioning, and gain healthy coping skills. ? Narrative Note: []
--- NOTE | 2025-01-18 11:15 | BH.SGPN.GN ---
Behaviors/Verbalizations/Mental Status: [] Client alert and oriented, casually dressed and groomed. Eye contact good. Motor activity appropriate. Speech within normal limits. Affect congruent, mood content. Thoughts linear, logical, no signs of hallucinations or delusions. Client Response/Progress/Benefit: [] Pt engaged in session AEB client listening attentively to peers and providing input. Attentive during psychoeducation on the 4 R?s of Self-Forgiveness (Responsibility, Remorse, Muslim, Renewal). Contributed to discussion as group worked on identifying strategies for improving ability to practice self-forgiveness. Reports wanting to practice thought challenging and setting boundaries. Engaged in self-forgiveness activity and benefited from increased education on self-forgiveness building skills. Pt will continue IOP tx to improve mood stability, increase self-compassion, and prevent decompensation. Narrative Note: []
--- NOTE | 2025-01-21 09:00 | BH.SGPN.GN ---
Behaviors/Verbalizations/Mental Status: [] Eye contact is good. Motor activity is appropriate. Appearance is casual. Speech is Appropriate. Mood is anxious. Affect is congruent. Thoughts are linear and logical. No evidence of psychosis. Reviewed daily check in sheet and no reports of suicidal ideations Client Response/Progress/Benefit: [] Pt participated when prompted. Attentive. Daily symptom tracker notes 4/5 for depression and irritability. Shared that his holiday was overall very positive despite it being loud and stressful. He shared stress reduction and coping strategies that he used over the holiday to minimize anxiety and stress. Progress noted. Benefited from group support, encouragement, and feedback. Will continue in IOP to prevent decompensation, stabilize mood, and improve functioning. Narrative Note: []
--- NOTE | 2025-01-21 10:00 | BH.SGPN.GN ---
Behaviors/Verbalizations/Mental Status: [] Eye contact is fair to good. Motor activity is appropriate. Appearance is casual. Speech WNL. Mood is euthymic, slightly anxious. Affect is congruent. Thoughts are linear and logical. No evidence of psychosis. Client Response/Progress/Benefit: [] Client was an active participant in group discussion and experiential activity. Attentive during psychoeducation on resilience. Participated in interactive discussion with peers on the definition of resilience. Group identified that resiliency can be impacted by; past experiences, personality, and current mental health state. Group also worked together to identify the benefits of being resilient and how it is related to mental health. Able to relate experiential activity of group juggle to topics of resilience. Worked well with peers in small group in which they identified factors that contribute to resilience. Benefited from increased awareness of resilience and the factors that contribute to building resilience. Will continue in IOP to increase consistent use of healthy coping skill, challenge distortions, and prevent decompensation.
--- NOTE | 2025-01-21 21:04 | BH.MDN ---
Multi-Disciplinary Note Note 45-min Individual: Time Started:: 11:10 Date: 01/21/25 Purpose of session/treatment goals addressed:: Purpose of session was to address goals 1 and 2 from MTP. Eye Contact:: Good Motor Activity:: Appropriate Appearance:: Casual Speech:: Appropriate Mood:: Euthymic Affect:: Congruent Thoughts:: Linear, Logical and No evidence of hallucinations/delusions noted Staff Interventions:: psychoeducation on: (disenfranchised grief), CBT techniques, strengths perspective, goal setting and taught coping skills Client Response:: Client reported his Thanksgiving went better than expected. Client stated after last individual session he did choose to talk to his mom about possibly not staying for the entire family dinner this year due to it being the first holiday without his grandpa. Client reported after a couple hours at the libertarian his mom checked in with him and they agreed to leave early. client connected with psychoeducation about disenfranchised grief. client stated he doesn't believe he has been able to grief the loss of the relationship with Roberta because his friends and family didn't want to talk about her anymore since she made significant lies about him when they broke up. Client reported he has pushed down his feelings about the loss of this relationship and this continues to ruminate on what happened that led to the breaking up. Therapist provided supportive counseling to help client process feelings and thoughts about past relationship. Client shared he does have difficulty trusting others since this relationship because of how she lied about him. Client reported since this relationship he has had several very short relationships. Client shared part of the issue is he often keeps himself at a distance emotionally out of fear of being hurt again. Client noted tends to get into intense relationships quickly but the relationship usually ends about one month. Client reported he would like to work on being able to have healthier, longer lasting relationships in the future. Client open to completing homework to do reflection on how grief from past relationship is still holding him back and will start writing out a list of positive qualities he wants in a relationship. Risks/Concerns:: Denies suicidal ideation, plan, or intention to date. future oriented. Progress Toward Goals/Plan:: Progress noted with client opening up to his mom which is something he has struggled with for most his life. Client reported having a positive Thanksgiving despite feeling sad about it being the first holiday without his grandpa. Client gaining insight and awareness of how past relationships are impacting his ability to trust and open up to others. Client connected how keeping his emotional distance from others does contribute to isolation and not sharing his feelings. Client open to further exploring what qualities he would like to have in a relationship/connection moving forward. Plan is for client to continue IOP to promote healthy coping, improve daily functioning, and prevent decompensation. Time Stopped:: 12:00
== END 2025-01-23 23:59 ==
LOC: BHIOP 08:00
PROVIDERS: Referring Provider Internal Medicine; Visit Provider Internal Medicine
DX: F33.2 Major depressive disorder, recurrent severe without psychotic features (principal)
CPT/HCPCS: H2012; H2020; S9480; 90834; 90837

== ENCOUNTER 2025-01-24 08:06 | Outpatient (RCR) | payer MEDICAID, SELFPAY ==
--- NOTE | 2025-01-04 11:10 | BH.SGPN.GN ---
Behaviors/Verbalizations/Mental Status: [] client alert and oriented, casually dressed and groomed. Eye contact good. Motor activity appropriate. Speech within normal limits. Affect congruent, mood euthymic. Thoughts linear, logical, no signs of hallucinations or delusions. Client Response/Progress/Benefit: [] Client was an engaged participant throughout group AEB client providing input throughout discussion. Client contributed to the continued discussion of how people express anger as well as the underlying emotions of anger. Client participated in group activity that highlighted strategies to cope with anger. Group brainstormed healthy coping skills to help prevent anger and cope with it in the moment which included: mindfulness, deep breathing, journaling, going outside, and music. Client stated would like to work on breathing and getting outside as calming skills to manage anger. Client appeared to benefit from brainstorming with the group potential strategies to manage anger in healthy ways. Recommended continued IOP to increase healthy coping skills, challenge negative thoughts, and prevent decompensation.
--- NOTE | 2025-01-24 10:10 | BH.SGPN.GN ---
Behaviors/Verbalizations/Mental Status: []Pt alert and oriented, casual appearance. Eye contact good. Motor activity appropriate. Speech within normal limits. Affect congruent, mood euthymic. Thoughts linear, logical, no signs of hallucinations or delusions. Client Response/Progress/Benefit: [] Pt responded well to session AEB sharing and listening attentively to others. Group provided examples of types of support (professional, pets, hobbies, community, spouse, ludy, etc) as well as benefits of having social support, including: validation, get perspective, and accountability. Pt also participated in group discussion regarding the barriers to accessing support. Pt identified positive supports to include: mom, dogs, best friend, medications, and gym. Pt participated in experiential activity illustrating the impact communication, boundaries, and patience play in creating healthy support systems. Pt appeared to benefit from increased knowledge of the benefits of social support and greater self-awareness. Pt to continue IOP to challenge distortions, promote use of healthy coping skills, and prevent decompensation.
--- NOTE | 2025-01-24 11:15 | BH.SGPN.GN ---
Behaviors/Verbalizations/Mental Status: [] Client alert and oriented, casually dressed and groomed. Eye contact good. Motor activity appropriate. Speech within normal limits. Affect congruent, mood dysthymic and anxious. Thoughts linear, logical, no signs of hallucinations or delusions. Client Response/Progress/Benefit: [] Client was an active participant throughout AEB contributing to discussion, providing personal examples, and taking notes. Client processed emotions felt in the activity and how they coped in the moment. Client provided input during discussion on the types of support our supports can provide. Client reflected on the types of support their current support system provides. Reported after identifying what type of supports they receive; they gained awareness that they could benefit from more educational and emotional supports. Client identified steps to achieve this by learning more about mental health and reaching out. Client seemed to benefit from identifying the type of support client needs to work on improving. Client recommended to continue IOP tx to prevent decompensation, reduce negative self-talk, and increase emotional regulation skills. Narrative Note: []
--- NOTE | 2025-01-24 14:33 | BH.MDN_ITS ---
Multi-Disciplinary Note Note 45-min Individual: Time Started:: 09:10 Date: 01/24/25 Purpose of session/treatment goals addressed:: Purpose of session was to address goals 1 and 2 from MTP. Eye Contact:: Good Motor Activity:: Restless Appearance:: Neat Speech:: Appropriate Mood:: Euthymic Affect:: Congruent Thoughts:: Linear, Logical and No evidence of hallucinations/delusions noted Staff Interventions:: thought challenging, CBT techniques, strengths perspective, goal setting (started habit tracker sheet) and taught coping skills Client Response:: Client brought in homework from last individual session. Client identified that he is still holding on to grief from the loss of his relationship with his ex, Roberta. Client stated he is frustrated that he can't let this loss go, especially since per his report she made significant lies abo ut him. Client stated he has a hard time letting this relationship go even though it ended badly. Client reported ever since this relationship he has struggled with trusting others. In the homework client also identified qualities he believes indicate a relationship is healthy. Client identified qualities in which she feels like he has done well within relationships is goals, respecting each other, being kind, active listening, respecting the other person's phone and privacy, and taking accountability. Client stated areas in which other people he has been with relationship and [place] have struggled with lying, guilt tripping, gaslighting, manipulating, and not upholding boundaries. Client then was asked to identify which qualities or characteristics were his nonnegotiable's in which she identified no manipulation, no gaslighting, no guilt tripping, openly communicating, having own personal space, and being emotionally available. Client noted he realizes he does not uphold his boundaries very well within his connections because the things he identifies as nonnegotiable's are often the things that he is experience within friendships and relationships in the past. Client noted that he mostly struggles with avoiding boundaries, jealousy, communicating, trusting, and not being emotionally available. Client reported he learned from this activity that he needs to work on decreasing his jealousy and improving his ability to trust others. Client shared he has been cheated on numerous times with an his relationships which is a contributing factor to why he cannot trust people. Client recognizes by being emotionally unavailable and having difficulty trusting others could be a factor why he keeps getting into unhealthy situations. Client and therapist discussed the importance of client starting to work on upholding his boundaries with friends and family to improve confidence and behaviorally provide himself that his thoughts and values matter. In discussion about what client utilizes to cope with difficult people he stated that he mostly uses marijuana to cope with his Joann that he was with. Client stated his mom and him live with his Joann and is not a good situation. Client shared he smokes marijuana daily both with a vape and flower. Client noted he has been doing well with not smoking before coming to IOP. Client stated previously he used to wake up and immediately start smoking and noted sometimes he still does that but not on days he has to do something like either go to work or go to therapy. Client reported he would like to reduce his marijuana use because he has noticed he is having a harder time remembering things and believes it is negatively impacting his motivation level. Client stated the first thing he would like to work on is no longer buying anymore marijuana vapes because it is too accessible to use and the THC level is very high. Client reported once he finishes his current vape which she said is almost empty plans to not purchase another 1. Client therapist completed a habit tracker to help client start getting back into things that he knows is healthier for him like getting back in the gym, cutting back on marijuana, and cutting back on nicotine. Risks/Concerns:: Denies suicidal ideation, plan, or intention to date. future oriented. Progress Toward Goals/Plan:: Progress noted with client reporting overall positive weekend and showing improvement with opening up in session about his feelings. Client continues to report difficulty with expressing his wants or needs with others. Last week client showed progress with opening up to his mom that he didn't want to stay as long at Thanksgiving dinner. Client continues to use marijuana as his coping skill but this week has expressed desire to start cutting back on his use. Plan is for client to continue IOP to improve healthy coping, challenge distortions, and prevent decompensation. Time Stopped:: 10:00
--- NOTE | 2025-01-27 09:05 | BH.SGPN.GN ---
Behaviors/Verbalizations/Mental Status: [] Eye contact is good. Motor activity is appropriate. Appearance is casual. Speech is Appropriate. Mood is anxious. Affect is congruent. Thoughts are linear and logical. No evidence of psychosis. Reviewed daily check in sheet and no reports of suicidal ideations Client Response/Progress/Benefit: [] Pt participated at times during the group discussions. Attentive. Pt identified several mental health wins. One of the wins involved joining a social group which was very anxiety producing. ? I took a huge first step?. Emotion is ?hopeful?. Progress noted. Benefited from group support, encouragement, and feedback. Will continue in IOP to increase healthy coping, prevent decompensation, and improve functioning. Narrative Note: []
--- NOTE | 2025-01-27 10:10 | BH.SGPN.GN ---
Behaviors/Verbalizations/Mental Status: [] Eye contact is good. Motor activity is appropriate. Appearance is casual. Speech is Appropriate. Mood is euthymic Affect is congruent. Thoughts are linear and logical. No evidence of psychosis. Client Response/Progress/Benefit: [] Pt was an active participant in group discussion and activity. Attentive during psychoeducation on what it means to take action. Pt identified symptoms that they want to take gain control over which included fear of failure, not having voice, fear of looking dumb. Increased insight into what could be holding patient back from mental wellness and the importance of taking action on symptoms and obstacles rather than avoiding or ignoring. Will continue in IOP to increase self worth, prevent decompensation, and increase overall functioning. Narrative Note: []
--- NOTE | 2025-01-27 11:15 | BH.SGPN.GN ---
Behaviors/Verbalizations/Mental Status: [] Pt alert and oriented, neatly dressed and groomed. Eye contact good. Motor activity appropriate. Speech within normal limits. Affect congruent, mood euthymic. Thoughts linear, logical, no signs of hallucinations or delusions. Client Response/Progress/Benefit: [] Pt responded well to session, taking notes and participating in worksheet discussion. Pt connected with the discussion on action steps, and this helped pt learn how to set goals differently. Pt set motion and action steps to goal which included ?setting realistic expectations and set a goal t odo something for 1 min each day and work way up to more to reduce social anxiety.? Appeared to benefit from identifying a small goal to benefit mental health. Pt is to continue IOP tx to increase distress tolerance, reduce negative self-talk, and improve daily functioning. Narrative Note: []
--- NOTE | 2025-01-28 09:00 | BH.SGPN.GN ---
Behaviors/Verbalizations/Mental Status: [] Pt alert and oriented, Casually dressed and groomed. Eye contact good. Motor activity appropriate. Speech within normal limits. Affect congruent, mood anxious. Thoughts linear, logical, no signs of hallucinations or delusions. Reviewed pt?s symptom tracker today, denies suicidal ideation, plan, and intent.01/28/25 Client Response/Progress/Benefit: []Pt was an active participant in group discussions. Attentive. Per patients daily symptom tracker, pt indicates a 3/5 for depression and a 4/5 for anxiety, with 5 being severe. 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 Pt's other mental health win was coming to group today despite feeling tired and unmotivated. Pt stated that he knows he will feel better if he comes, which motivated him. Pt's stressor is dealing with his grandmother who he reports got him into trouble for something that he did not do. Despite this, Pt stated that he was able to stay emotionally regulated and did not lash out. Pt was supportive and attentive to others in the group. Pt seemed to benefit from support from peers. Will continue IOP tx to promote healthy coping mechanisms, decrease negative thinking patterns, and prevent decompensation.
--- NOTE | 2025-01-28 10:15 | BH.SGPN.GN ---
Behaviors/Verbalizations/Mental Status: [] Eye contact is good. Motor activity is appropriate. Appearance is casual. Speech is Appropriate. Mood is euthymic. Affect is congruent. Thoughts are linear and logical. No evidence of psychosis. Client Response/Progress/Benefit: [] Client was an active participant during interactive group discussions. Attentive during psychoeducation on the six types of boundaries (physical, emotional, intellectual, sexual, time, and material). Along with peers contributed to interactive discussion on defining what a boundary is in mental health. Client along with peers identified challenges to setting boundaries which included; fear of other's response, guilt, fear of rejection, fear of disappointing the other person, feeling like one is unworthy to set boundaries, etc. Client along with peers identified the benefits to setting boundaries such as increased confidence, decreased stress, increased time for self-care, and better quality of life. Group discussed the mental health benefits to establishing boundaries at work, school, and home. Client benefited from increased awareness and insight on the importance/benefit to setting health boundaries. Will continue in IOP to prevent decompensation, increase self esteem, and improve functioning. Narrative Note: []
--- NOTE | 2025-01-28 10:52 | PCM.BH.PN ---
Intake Vital Signs 01/07/25 10:14 01/28/25 10:52 Height 1.8 m 1.8 m Weight: 76.204 kg BP 132/62 H Pulse 61 Intake Visit Reasons: f/u MDD Allergies No Known Allergies Allergy (Verified 01/07/25 09:06) Medications ?Medication ?Instructions ?Recorded ?Confirmed ?Type cholecalciferol (vitamin D3) 25 25 mcg PO DAILY 01/07/25 01/07/25 History mcg (1,000 unit) tablet divalproex 500 mg tablet,extended 1,000 mg PO DAILY 01/07/25 01/07/25 History release 24 hr lumateperone 42 mg capsule 42 mg PO DAILY 01/07/25 01/07/25 History (Caplyta) sertraline 50 mg tablet (Zoloft) 50 mg PO DAILY #30 tabs 01/28/25 Rx HPI () History of Present Illness History provided by: patient Chief complaint: F/u MDD HPI: -Current psychiatric medications: Caplyta 42mg daily, depakote 500mg BID (for seizures) -SUBJECTIVE: Reports feeling stressed and overwhelmed. Still is not sleeping well and still is not eating well. He has been thinking about his father more but does not think they will be going down to meet him now. There were some concerns with mom's health but those things are all being checked out and seem to be okay. Does note some of his increased anxiety has to do with his grandmother and the stress of working with/around her. Is not having any active SI or HI. No AH or VH. Tolerating the Caplyta and thinks maybe it has been somewhat helpful but still has a lot of depression and anxiety and is interested in making a medication adjustment Exam Mental Status Exam- Psych () Appearance casually dressed and adequately groomed Attitude cooperative, engaged and pleasant Activity/Motor Behavior fidgeting Speech regular rate and regular volume Mood anxious Affect full range and congruent Thought Process linear and logical Thought Content no delusions Suicidal Ideation none Homicidal Ideation none Attention intact Concentration intact Sensorium/Orientation awake and alert Memory/Cognition intact Insight fair Judgement fair Assessment & Plan () Assessment & Plan (1) MDD (major depressive disorder), recurrent severe, without psychosis: Plan: Continues to struggle with depressed mood and seems to have increased anxiety from previous, he is on Caplyta which has possibly had some improvement but given continued symptoms patient agreeable to trialing an additional medication. Discussed bipolar disorder and criteria in further detail given he has been previously told that he was bipolar, after going through and specifically focusing again on the diagnostic criteria and patient's current and past symptoms do not think that he has a history of bipolar disorder or symptoms consistent with that. That being said would like to make 1 change at a time so we will continue Caplyta and will add Zoloft, uptitrate as tolerated. Did discuss blackbox warning for SSRIs given his age patient verbalized understanding and is willing to reach out if he would have any suicidal thoughts or concerns Medications: New sertraline 50 mg PO DAILY 30 tabs 0RF Charges/Coding Behavior Health Behavior Health EST Pt E/M: 08284 Est Pt Level IV
--- NOTE | 2025-01-28 11:15 | BH.SGPN.GN ---
Behaviors/Verbalizations/Mental Status: [] Eye contact is good. Motor activity is appropriate. Appearance is casual. Speech is Appropriate. Mood is euthymic. Affect is congruent. Thoughts are linear and logical. No evidence of psychosis. Client Response/Progress/Benefit: [] Client responded well to session AEB listening attentively to peers, providing input, as well as taking notes throughout. Participated in group discussion brainstorming various strategies for improving healthy boundary setting. Client reports wanting to begin using skill of giving self permission to focus on self to improve overall ability to establish and maintain healthy boundaries. Seemed to benefit from increased awareness of how different boundary styles can impact mental health. Will continue IOP tx to increase consistent application of skills, increase self-care and anxiety management, and prevent decompensation. Narrative Note: []
--- NOTE | 2025-02-03 10:10 | BH.SGPN.GN ---
Behaviors/Verbalizations/Mental Status: [] Client alert and oriented, casually dressed and groomed. Eye contact good. Motor activity appropriate. Speech within normal limits. Affect congruent, mood euthymic. Thoughts linear, logical, no signs of hallucinations or delusions. Client Response/Progress/Benefit: [] Client responded well to session, attentive during psychoeducation on SMART goals (Specific, Measurable, Achievable, Realistic, and Time-bound) and engaged in group experiential activity. Participated in an interactive discussion with peers in which they worked together to define what a goal is and the benefits of having goals. Group identified benefits as; helps MH, improves motivation, improves confidence, and personal growth. Participated in interactive discussion in which group identified barriers to setting goals and following through with goals. Group barriers included health, lack of supports, making excuses, and avoidance. Benefited from increased awareness of benefits and strategies for goal-setting. Will continue in IOP tx to promote healthy coping skills, build confidence, and prevent decompensation.
--- NOTE | 2025-02-03 10:42 | BH.MDN ---
Multi-Disciplinary Note Note 60-min Individual: Time Started:: 09:10 Date: 02/03/25 Purpose of session/treatment goals addressed:: Purpose of session was to address goals 1 and 2 from MTP. Eye Contact:: Good Motor Activity:: Appropriate Appearance:: Casual Speech:: Appropriate Mood:: Euthymic Affect:: Congruent Thoughts:: Linear, Logical and No evidence of hallucinations/delusions noted Staff Interventions:: thought challenging, motivational interviewing, CBT techniques, strengths perspective, goal setting and taught coping skills (decisional balance worksheet) Client Response:: Client reported he feels like he is starting to be more like myself. Client stated he has been working on cutting back on his marijuana vape use. Client reported he has not bought a new vape so isn't using as much, but admits he will hit his friends vapes when hanging out. Client stated he is open to communicating with his friends that he is trying to quit vaping marijuana and hopefully his friends will stop asking. Client admitted he hasn't said anything to his friends because a part of him wants to still be able to smoke. Client stated however he has observed small progress since cutting out his marijuana vape with decreased stress in the morning and improved motivation to get out of bed. Client reported he used to smoke his vape the minute he would wake up everyday which would make it challenging to get out of bed. Client stated sometimes he would be immediately stressed in the morning when he couldn't find his vape after waking up. Client reported he has also noticed slight decrease in how much marijuana flower he is smoking each day as well. Client stated wants to continue to slowly work on decreasing his use of marijuana. Client reported not doing well on his goal of decreasing his zyn use. Client noted he uses significantly more zyn in a day then he thought. Client reported he counted the other day using 7 zyn in one day. Therapist discussed how might be important to reevaluate his goal of cutting back on zyn because it can be challenging to quit multiple substances at once. Client stated would like to focus on cutting back by one zyn a day. Client reported he does think he is using more zyn because of the stress he has working and living with his grandma. Client stated relationship has never been good with his grandma. Client reported he holds resentment towards her for marrying someone that was overtly racist and wouldn't allow client in his grandma's house when he was younger. Client stated she isn't very nice and is often complaining about things she does financially for client and his mom. Therapist and client discussed options of radical acceptance or directly addressing issues with his grandma because it is resulting in daily stress and impacting his mental health. Client reported still unsure what he wants to do with this situation. Client noted working with his grandma makes things a little worse. Client stated continues to work there out of pressure from his mom to keep helping. Client open to completing a decisional worksheet balance to help him decide what would be best for his future and mental health in regards to staying at current job or seeking other employment. Risks/Concerns:: Denies current suicidal ideation, plan, or intention to date. future oriented. Progress Toward Goals/Plan:: Progress noted with client noting decreasing his vaping of marijuana which has positively impacted his motivation and morning clarity. Client noted starting to feeling more like himself recently. Ongoing stressor is his grandma that he works for and lives with. Client admits to avoiding any conflict which contributes to feeling constantly agitated when he is around his grandma. Client has never verbalized his frustration towards his grandma on how she treats him which future adds to the constant agitation when he is around her. 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 Client open to completing decisional balance worksheet about staying at current job versus looking for a different job. Plan is for client to continue IOP to challenge negative thoughts, decrease people pleasing behavior, and prevent decompensation. Time Stopped:: 10:10
--- NOTE | 2025-02-03 11:10 | BH.SGPN.GN ---
Behaviors/Verbalizations/Mental Status: []Pt alert and oriented, neatly dressed and groomed. Eye contact good. Motor activity appropriate. Speech within normal limits. Affect congruent, mood content and anxious. Thoughts linear, logical, no signs of hallucinations or delusions Client Response/Progress/Benefit: [] Pt was engaged during discussion and willing to complete the worksheet challenging them to develop a personal SMART goal. Pt chose the goal of practicing self-love 4x this week. Pt identified negative core beliefs and fear of failure as barriers. Identified solutions such as thought challenging and sitting with discomfort. Pt receptive to identifying solutions for these barriers and willing to begin working on this goal. Benefited from this group by developing a short-term SMART goal related to mental health. Will continue IOP tx to prevent decompensation, improve daily functioning, and increase mood stability. ? Narrative Note: []
--- NOTE | 2025-02-04 09:05 | BH.SGPN.GN ---
Behaviors/Verbalizations/Mental Status: []Pt alert and oriented, casually dressed and groomed. Eye contact good. Motor activity appropriate. Speech within normal limits. Affect constricted, mood depressed. Thoughts linear, logical, no signs of hallucinations or delusions. Reviewed pt?s symptom tracker, no risk for suicidal ideation, plan, or intent 02/04/25. Client Response/Progress/Benefit: []Pt was an active participant in group discussions. Attentive. Able to identify mental health wins including ?I got up and got here even though I really didn?t want to and I recently hung out with friends.? Pt's stressor today is ?I?m really stuck if I should have a relationship with my dad?s family.? The group offered pt suggests managing this stressor and emotional support which pt reported was helpful. Pt is feeling ?depressed but hopeful? this morning. Pt receptive to feedback from peers. Benefited from group support, encouragement, and feedback. Progress noted. Pt will continue IOP tx to prevent decompensation, increase use of healthy coping skills, and further reduce maladaptive coping skills. Narrative Note: []
--- NOTE | 2025-02-04 11:10 | BH.SGPN.GN ---
Behaviors/Verbalizations/Mental Status: []Eye contact is good. Motor activity is appropriate. Appearance is casual. Speech is Appropriate. Mood is euthymic. Affect is congruent. Thoughts are linear and logical. No evidence of psychosis. Client Response/Progress/Benefit: [] Pt was an attentive participant in group discussions and actively engaged during experiential activity. Participated with peers on identifying the connection between the experiential activity and utilization of stress management skills. Attentive during psychoeducation on the 4 A's (Avoid, adapt, alter, accept) of coping with stress. Pt engaged in self-reflection activity in which they identified one of the 4 A's to address one their top stressors. Benefited from increased awareness of stress management strategies. Pt will continue IOP to challenge negative and distorted thoughts, build confidence, reinforce healthy coping skills, and prevent decompensation.
--- NOTE | 2025-02-07 09:05 | BH.SGPN.GN ---
Behaviors/Verbalizations/Mental Status: [] Eye contact is good. Motor activity is appropriate. Appearance is casual. Speech is Appropriate. Mood is depressed and anxious. Affect is congruent. Thoughts are linear and logical. No evidence of psychosis. Reviewed daily check in sheet and no reports of suicidal ideations Client Response/Progress/Benefit: [] Pt participated at times during the group discussions. Attentive during video on mindfulness and provided feedback. Able to identify mental health wins over the weekend however reports increase in depression, isolation, and increased sleep over the past several days. No specific trigger however he reports contemplating his future extensively. No progress noted. Benefited from group support, encouragment, and feedback. Will continue in IOP to prevent decompensation, increase healthy coping, and improve functioning. Narrative Note: []
--- NOTE | 2025-02-07 10:05 | BH.SGPN.GN ---
Behaviors/Verbalizations/Mental Status: []Eye contact is fair. Motor activity is appropriate. Appearance is casual. Speech is Appropriate. Mood is euthymic. Affect is congruent. Thoughts are linear and logical. No evidence of psychosis. Client Response/Progress/Benefit: []Pt was an active participant in group discussions-providing insight and ideas. Attentive during psychoeducation on the 4 communication styles (Passive, Passive-Aggressive, Aggressive, and Assertive) and the obstacles to effective communication. Contributed during interactive discussion on the benefits of communicating effectively. Group identified the benefits and disadvantages to the different communication styles. Pt believes that they are primarily passive and pt struggles with expressing his needs and feelings. Benefited from increased understanding of communication styles and how these can impact effective communication. Will continue in IOP to prevent decompensation, improve daily functioning, and gain distress tolerance skills. Narrative Note: []
--- NOTE | 2025-02-07 15:38 | BH.MDN_ITS ---
Multi-Disciplinary Note Note 60-min Individual: Time Started:: 12:05 Date: 02/07/25 Purpose of session/treatment goals addressed:: Purpose of session was to address goals 1 and 2 from MTP. 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 Client notice the things that stood out for to him while he was completing the decision on balance where she is that he feels underappreciated in his current job and underpaid. Client noted if his grandma was not his boss he would like the current job and likely stay being around her is a huge con in his perspective. Client stated he went over this with his mom and she continues to highlight that his current job is very flexible which is a significant positive since he has history of struggling with getting to work. Client noted he does believe the reason he has struggled to get to work is because he doesn't enjoy being around his grandma who has to be around consistently when he goes in to work. Therapist and client discussed how it could be helpful if you could demonstrate consistency in attending work to show his mom that he is doing better and would be able to manage a different job that may require more structured schedule. Interviewing clients progress in areas of concern client noted he has made significant progress with decreasing of cannabis use. At admission to [facility] client had shared he was smoking cannabis around 20 hours a day. Client noted there are days that he will smoke about two hours and there are other days in which you will smoke 7 to 8 hours a day. Client reported he has significantly decreased his use of vaping cannabis now only smoking if he's with a friend versus he would smoke all the time when he had his own vape. Client noted he would like to continue to work on decreasing his cannabis use because it doesn't want to feel reliant on the substance. 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 Client said he could continue to work on improving his depression because he does feel a little down lately. Client therapist discuss how does client know what baseline looks like for him. Client identified when he's showering 5 to 6 * a week, engaging in skin care, daily teeth hygiene, eating healthy foods, getting out of bed, not napping or sleeping as much, being consistent with work, and being social. Therapist added these behaviors to his daily habit bliss tracker to help therapists and client recognize if he is starting to decompensate or if he's doing well. Therapist encouraged client to focus for the next week on opposite action, client connected to psychoeducation about behavior activation. Risks/Concerns:: Denies suicidal ideation, plan, or intention to date. future oriented. Progress Toward Goals/Plan:: Progress noted with client reporting decreased cannabis use, improved sleep, decreased anxiety, and moderate decrease in depressed symptoms. Client noted he has been feeling more depressed the last week or so, but recognizes he has been doing better with managing his symptoms. Client stated he has significantly decreased his cannabis use compared to when he first started IOP. Client noted he has observed positive benefits to his energy, motivation, and thought clarity since being sober more frequently. Plan is for client to continue IOP to promote healthy coping, challenge negative thoughts, and prevent decompensation. Time Stopped:: 13:05
--- NOTE | 2025-02-14 09:00 | BH.SGPN.GN ---
Behaviors/Verbalizations/Mental Status: [] Pt alert and oriented, neatly dressed and groomed. Eye contact good. Motor activity appropriate. Speech within normal limits. Affect constricted, mood calm. Thoughts linear, logical, no signs of hallucinations or delusions. Reviewed pt?s symptom tracker, no risk for suicidal ideation, plan, or intent 02/14/25. Client Response/Progress/Benefit: []Pt was an active participant in group discussions. Attentive. Able to identify mental health wins including ?we might be getting a new truck which we really need, the old one is stressing me out.? Pt's stressor today is ?I?ve been having back pain.? The group offered pt suggests managing this stressor and emotional support which pt reported was helpful. Pt is feeling ?hopeful? this morning. Pt receptive to feedback from peers. Benefited from group support, encouragement, and feedback. Progress noted. Pt will continue IOP tx to reduce negative self-talk, improve self-compassion, and gain healthy supports. ? Narrative Note: []
--- NOTE | 2025-02-14 10:10 | BH.SGPN.GN ---
Behaviors/Verbalizations/Mental Status: []Pt alert and oriented, casually dressed and groomed. Eye contact good. Motor activity appropriate. Speech within normal limits. Affect congruent, mood anxious and dysthymic. Thoughts linear, logical, no signs of hallucinations or delusions. Client Response/Progress/Benefit: [] Pt took notes and contributed to group discussions. Attentive during psychoeducation on growth mindset. Interactive group discussion on fixed mindset in which group verbalized their current fixed mindsets and how they affect their mental health. Pt shared common fixed mindset thoughts they have. Pt shared a personal fixed thought I?m never going to be mentally okay? Pt able to connect negative impact fixed thoughts have on functioning. Pt benefited from increased awareness of growth mindset and fixed thoughts and how fixed thoughts impact their mental health. Will continue IOP tx to promote use of healthy coping skills, challenge negative thoughts, and prevent decompensation. Narrative Note: []
--- NOTE | 2025-02-14 11:10 | BH.SGPN.GN ---
Behaviors/Verbalizations/Mental Status: []Pt alert and oriented, casually dressed and groomed. Eye contact good. Motor activity appropriate. Speech within normal limits. Affect congruent, mood euthymic. Thoughts linear, logical, no signs of hallucinations or delusions. Client Response/Progress/Benefit: [] Pt was an active participant during activity and discussion. Pt did well to remain attentive and participate as group worked on identifying characteristics and benefits of adopting a growth mindset. Worked with fellow participants in reframing the example fixed thoughts into growth mindset thoughts. Pt worked on changing own fixed thought. Pt attentive during discussion about different strategies that can help with fostering a growth mindset. Pt appeared to benefit from challenging own thoughts and engaging in the activity. Pt will continue IOP tx to reinforce helathy coping skills, challenge distorted thoughts, and prevent decompensation.
--- NOTE | 2025-02-15 13:34 | BH.MDN ---
Multi-Disciplinary Note Note 60-min Individual: Time Started:: 11:18 Date: 02/15/25 Purpose of session/treatment goals addressed:: Purpose of session was to address goals 1 and 2 from MTP. Eye Contact:: Good Motor Activity:: Restless Appearance:: Neat Speech:: Appropriate Mood:: Euthymic and Other (sad) Affect:: Congruent Thoughts:: Linear, Logical and No evidence of hallucinations/delusions noted Staff Interventions:: thought challenging, CBT techniques, discharge planning and strengths perspective Client Response:: Client reported he is feeling a little sad today because the upcoming holiday is around the one year anniversary of his grandfather's . Client stated the holidays bring up a lot of emotions connected to missing his grandpa. Client reported despite the increased sadness he does believe he is doing better overall. Client shared he really connected with the group topic of growth vs fixed mindset yesterday. Client stated he realizes he has had a fixed mindset towards a lot of things in his life. Client reported his fixed mindset and belief that things will always be this way and I'll never get better have resulted in him missing out on opportunities and not trying new things. Client reported last night he chose to take time to research ways to improve writing and reading which is something he has struggled with due to struggles in high school. Client noted he was able to take time last night to read a book he has pushed off for some time. Client reported he also took notes about things he was learning from his research. Client stated this shows growth for him because he typically gives up and avoids tasks when he views the task as too difficult. Client reported he is also proud of himself from addressing a friend in a group chat for making a racist comment. Client stated this friend has made jokes that have gone too far about client's race. Client reported he hates conflict so would often let things slide, but lately he has been trying to stand up for himself. Client expressed challenges he has with being bi-racial. Client stated he lives in a predominately white area and doesn't have a lot of exposure to black culture. Client reported he realizes this is something he would like to learn more about so he feels more connected to both of his identities. Client and therapist discussed possible ways to connect and learn more about black culture. Therapist provided client with a handout of different mental health agencies in the area for client to start looking into so he can connect with an outpatient therapist before he graduates. Client agreeable to work on contacting a mental health place before next week. Risks/Concerns:: Denies suicidal ideation, plan, or intention to date. future oriented. Progress Toward Goals/Plan:: Progress noted with client reporting use of thought challenge last night by using opposite action to try a task he usually pushes off due to not thinking he is good enough. Client noted significant benefit from learning about fixed vs growth mindset. Client reports increased feelings of sadness the last few days due to grief resurfacing with the holidays over the of his grandpa. Client reports handling his feelings better by being more open about his emotions. Client did note he went back to using a cannabis vape, but has been using the vape less frequently. Client stated it will still be his goal to cut out the cannabis vape. Client to continue IOP to improve consistent use of skills, challenge distorted thoughts, and prevent decompensation. Time Stopped:: 12:20
== END 2025-02-23 23:59 ==
LOC: BHIOP 08:06
PROVIDERS: Referring Provider Internal Medicine; Visit Provider Internal Medicine
DX: F33.2 Major depressive disorder, recurrent severe without psychotic features (principal)
CPT/HCPCS: H2012; H2020; S9480; 90834; 90837